=== PATIENT | male | born 1985 | race Caucasian/White ===

== ENCOUNTER 2025-04-02 11:21 | Emergency (ER) | payer OTHER ==
[2025-04-02 11:29] VITALS: BMI 31.0
[2025-04-02 13:01] VITALS: BP 141/103; PULSE 82; RESP 16; TEMP 98.7
== END 2025-04-02 13:37 | disposition home or self-care (01) ==
LOC: JERFT 11:21
DX: S69.91XA Unspecified injury of right wrist, hand and finger(s), initial encounter (principal); W01.0XXA Fall on same level from slipping, tripping and stumbling without subsequent striking against object, initial encounter; Y93.67 Activity, basketball
CPT/HCPCS: 73110-TC-RT-FY; 73130-TC-RT-FY; 99283-25